=== PATIENT | male | born 2000 | race Caucasian/White ===

== ENCOUNTER 2023-11-07 14:43 | Outpatient (CLI) | payer OTHER, SELFPAY ==
--- NOTE | ~2023-11-07 | XR_ITS ---
XR thoracic spine 3V DATE: 11/07/2023 15:10 INDICATION: Chronic bilateral thoracic back pain TECHNIQUE: AP, lateral, swimmer views COMPARISON: None FINDINGS: No fracture or dislocation. The thoracic pedicles are intact. Thoracic interspaces are pres erved. No paraspinal soft tissue thickening. IMPRESSION: Negative Reviewed, dictated and finalized at location B. IMPRESSION: Negative
--- NOTE | ~2023-11-07 | XR_ITS ---
XR lumbar spine min 4V DATE: 11/07/2023 15:10 INDICATION: Chronic back pain TECHNIQUE: AP, lateral, coned lateral lumbosacral views and bilateral oblique views COMPARISON: None FINDINGS: Normal alignment lumbar spine. No fracture or bone destruction, spondylolysis or spondyloli sthesis. Lumbar levels interspaces are relatively preserved. The sacroiliac joints are intact. IMPRESSION: No significant abnormality Reviewed, dictated and finalized at location B. IMPRESSION: No significant abnormality
== END 2023-11-07 14:44 | disposition home or self-care (01) ==
PROVIDERS: PCP Nurse Practitioner Adult Health; Visit Provider Nurse Practitioner Adult Health
DX: M54.6 Pain in thoracic spine (principal); G89.29 Other chronic pain
CPT/HCPCS: 72072; 72110

== ENCOUNTER 2024-01-02 14:00 | Outpatient (RCR) | payer OTHER, SELFPAY ==
--- NOTE | 2023-12-05 13:05 | PTOPEVAL1 ---
Assessment and note entered by Raciel Lunsford Evaluation Information Assessment Status Evaluation Diagnosis bilateral thoracic pain, lumbar pain Onset 11/18/23 Subjective Information Pt. reports that in 2020 he was working lifting tires and felt pain in the mid and lower back. He reports the initial injury was severe and he had trouble walking. he reports that he has had constant pain since 2020. He reports that his pain will vary in intensity. 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 Pt. reports that he underwent x-ray which were negative. He reports pain is worsened with standing long periods, sitting at the computer, and with lifting and bending. He reports that he uses a heating pad before sleep due to pain. He reports that he is capable of working through his pain 9 times out of 10. He reports that he does occasionally have to take a rest period to reduce his pain. He reports that to get on the ground to play with his son, he will have to have his assist him to get off the floor. He reports that he does not do any exercise. He reports that his goal is to reduce his back pain. Reported Pain Level Pain Score 3,7: Self Report Assessment PT Clinical Summary Pt. is a 23 year old male who enters the clinic with mid and lower back pain. He presents with abdominal weakness, impaired postural awareness, pain and functional decline. Continued skilled PT is indicated in order to improve these areas to allow for improve comfort with IADL performance. Plan of Care Interventions Electrical Stimulation,Hot Pack/Cold Pack,Manual Therapy,Mechanical Traction,Neuro Re-education, Patient/Caregiver Educati,Therapeutic Activities, Therapeutic Exercise Treatment Frequency and 2x/week x 8 visits Duration These treatments will address the objective and functional deficits as defined above. The patient will be advanced safely and appropriately in order for the patient to progress towards his/her prior level of function. Additional exercises will be introduced and as well as a comprehensive home exercise program upon discharge, if needed, ?to ensure carryover of functional gains achieved in the clinic. This treatment plan has been reviewed and agreement upon by the patient.
--- NOTE | 2023-12-05 13:08 | OPREHPOC ---
Outpatient Therapy Plan of Care This is a Multidisciplinary Plan of Care that may contain components documented by all disciplines (PT, OT, and ST.) PT Problem 1 PT Problem #1 Knowledge Deficit PT Goal 1 Goal Pt. will be independent with a HEP addressing postural control Target Visit 2 PT Problem 2 PT Problem #2 Pain PT Goal 1 Goal Pt. will report pain levels at 4/10 at worst with prolonged standing activities. Target Visit 8 PT Problem 3 PT Problem #3 Impaired Flexibility PT Goal 1 Goal Pt. will improve bilateral hamstring flexibility to 10 degrees from full knee extension. Target Visit 8 PT Problem 4 PT Problem #4 Impaired Functional Mobil PT Goal 1 Goal Pt. will be able to safely lift 20# from floor to waist with proper mechanics without pain increase.
--- NOTE | 2023-12-16 14:59 | PCPTNOTE ---
Patient did not show up for scheduled appointment this date. Called and left voicemail about missed appointment. Informed Pt of upcoming appointment on Saturday12/18/23 @ 14:30.
--- NOTE | 2023-12-31 15:06 | PCPTNOTE ---
No show, left voicemail to notify of next appt 01/01 14:00 if we don't hear from him will d/c.
--- NOTE | 2024-01-08 17:41 | PCPTNOTE ---
Pt is a no call, no show on this date
--- NOTE | 2024-01-15 15:28 | PCPTNOTE ---
Patient did not show for appointment today, attempted to contact patient but unable to reach him, his number did not allow voice messaging at this time.
--- NOTE | 2024-01-15 15:31 | PTOPDC ---
Assessment and note entered by Nadia Manzanares, PT Evaluation Information Assessment Status Discharge - Pt Not Presen Diagnosis bilateral thoracic pain, lumbar pain Onset 11/18/23 Subjective Information Pt stopped showing up for the past 4 appointments. Several therapists who were scheduled to work with him that day attempted to contact him but no response at this time. Plan of Care PT Services Indicated No
--- NOTE | 2024-01-15 15:37 | PTOPDC ---
Assessment and note entered by Nadia Manzanares, PT Discharge Information Assessment Status Discharge - Pt Not Presen Diagnosis bilateral thoracic pain, lumbar pain Onset 11/18/23 Subjective Information Pt stopped showing up for the past 4 appointments. Several therapists who were scheduled to work with him that day attempted to contact him but no response at this time. Assessment PT Clinical Summary Pt. skilled PT Plan of Care PT Services Indicated Yes
== END 2024-01-16 08:45 | disposition home or self-care (01) ==
LOC: ANHPT 14:00
PROVIDERS: PCP Nurse Practitioner Adult Health; Visit Provider Nurse Practitioner Adult Health
DX: M54.6 Pain in thoracic spine (principal); G89.29 Other chronic pain
CPT/HCPCS: 97014; 97110; 97140; 97161; 97530; 99199; G0283